=== PATIENT | male | born 1985 | race Caucasian/White ===

== ENCOUNTER 2017-12-17 14:38 | Emergency (ER) | payer BC ==
[~2017-12-17] VITALS: Ht 180.3 cm; Wt 59.0 kg
[~2017-12-17 14:38] MED LIST: FLOMAX0.4 MG PO; NOHOMEMEDICATIONS; PAXIL10 MG; TORADOL 10 MG T10 MG PO
[2017-12-17 15:05] LABS: URINE BILIRUBIN NEGATIVE (Negative); URINE BLOOD 3+ (Negative); URINE CLARITY CLEAR; URINE COLOR YELLOW; URINE GLUCOSE-RANDOM NEGATIVE (Negative); URINE KETONES TRACE (Negative); URINE LEUKOCYTES-REFLEX NEGATIVE (Negative); URINE NITRITE-REFLEX NEGATIVE (Negative); URINE PROTEIN NEGATIVE (Negative); URINE SPECIFIC GRAVITY >= 1.030 (1.005-1.030); URINE UROBILINOGEN 0.2 E.U./dl (0.2-1.0)
[2017-12-17 15:09] LABS: MUCUS 4-6 Moderate strn/LPF (None Seen)
[2017-12-17 15:10] LABS: CRYSTALS None Seen /LPF (None Seen); SQUAMOUS 0-3 Few /LPF (0-3); URINE RBC >20 Many /HPF (0-2)
[2017-12-17 15:11] LABS: BACTERIA-REFLEX None Seen /HPF (None Seen); URINE WBC-REFLEX 0-5 Rare /HPF (0-5)
[2017-12-17 15:12] LABS: HYALINE CASTS 0-3 Few /LPF (None Seen)
[2017-12-17 15:28] VITALS: BP 119/68
== END 2017-12-17 15:29 | disposition home or self-care (01) ==
LOC: M.ERS 14:38
PROVIDERS: Physician Assistant
DX: R10.9 Unspecified abdominal pain (principal); R31.9 Hematuria, unspecified; Z87.442 Personal history of urinary calculi; Z98.890 Other specified postprocedural states

== ENCOUNTER → 2018-05-22 | Outpatient (CLI) | payer BC ==
[~2018-05-22] VITALS: Ht 180.3 cm; Wt 59.0 kg
[2018-05-22 10:40] LABS: HEMATOCRIT 39.5 % (42.0-52.0); HEMOGLOBIN 12.7 gm/dL (14.0-18.0); MCH 25.1 pg (26.0-34.0); MCV 78.5 fL (80.0-100.0); MPV 8.6 fl. (7.2-11.1); RBC 5.03 mil/uL (4.50-6.00); RDW-CV 16.2 % (10.5-14.5); WBC 6.2 thou/uL (4.0-11.0)
[2018-05-22 10:48] LABS: CALCIUM 8.9 mg/dL (8.5-10.1); POTASSIUM 3.8 mmol/L (3.5-5.1)
[2018-05-22 10:51] VITALS: BP 95/63
[2018-05-22 10:52] LABS: APTT 26.8 Seconds (25.0-31.3); INR 1.1; PROTIME 10.5 Seconds (9.20-11.50)
[2018-05-22 12:41] VITALS: BP 104/51
[2018-05-22 12:55] VITALS: BP 103/61
== END | disposition home or self-care (01) ==
LOC: M.INT 10:05
PROVIDERS: Radiology Diagnostic Radiology
DX: Z45.2 Encounter for adjustment and management of vascular access device (principal); C20 Malignant neoplasm of rectum; Z87.442 Personal history of urinary calculi; Z98.890 Other specified postprocedural states; Z79.01 Long term (current) use of anticoagulants

== ENCOUNTER → 2020-06-10 | Outpatient (CLI) | payer OTHER ==
[~2020-06-10] VITALS: Ht 177.8 cm; Wt 52.6 kg
[2020-06-10 10:36] VITALS: BP 99/62
[2020-06-10 12:12] VITALS: BP 101/70
== END ==
LOC: M.INT 10:12
PROVIDERS: ATTEND Internal Medicine Hematology & Oncology
DX: Z45.2 Encounter for adjustment and management of vascular access device (principal); Z85.048 Personal history of other malignant neoplasm of rectum, rectosigmoid junction, and anus; Z79.899 Other long term (current) drug therapy; Z98.890 Other specified postprocedural states